=== PATIENT | female | born 1960 | race Hispanic/Latino ===

== ENCOUNTER → 2018-05-06 | Outpatient (CLI) | payer OTHER ==
--- NOTE | 2018-05-06 13:55 | Diagnostic Imaging Report ---
EXAM: CERVICAL SPINE 4 OR 5 VIEWS DATE: 05/06/2018 1:19 PM INDICATION: Neck pain COMPARISON: None FINDINGS: 5 views of cervical spine show 7 vertebrae on the lateral view. There is mild wedge deformity of C6 with prominent osteophytes at C5-6 and C6-7. There is straightening of the cervical curve. Disc spaces are maintained. No subluxation or prevertebral soft tissue swelling. There is mild encroachment upon neural foramina at C5-6 and C6-7 by posterior osteophytes. The odontoid is intact. There is a healed fracture of the left clavicle. IMPRESSION: 1. There are degenerative changes at C5-6 and C6-7 with posterior osteophytes encroaching on neural foramina. 2. Straightening of the cervical curve may be related to muscle spasm. 3. Mild wedge deformity at C6 with C5-6 and C6-7 osteophytes may relate to previous trauma. Signed by: Dr. Romel Puente M.D. on 05/06/2018 1:52 PM
== END ==
LOC: RAD 13:11
PROVIDERS: ATTEND Internal Medicine
DX: M47.812 Spondylosis without myelopathy or radiculopathy, cervical region (principal)
CPT/HCPCS: 72050